=== PATIENT | male | born 1955 | race Caucasian/White ===

== ENCOUNTER 2016-11-18 08:26 | Emergency (ER) | payer OTHER ==
--- NOTE | 2016-11-18 08:37 | EDPHY ---
H & P Stated Complaint: exposure to chemicals at work in air/coughing Time Seen by Provider: 11/18/16 08:37 - Personal History Current Tetanus/Diphtheria Vaccine: Yes - Medical/Surgical History Hx Asthma: No Hx Chronic Respiratory Disease: No Hx Diabetes: No Hx Cardiac Disease: No Hx Renal Disease: No Hx Cirrhosis: No Hx Alcoholism: No Hx HIV/AIDS: No Hx Splenectomy or Spleen Trauma: No Other PMH: fibromyalgia - Social History Smoking Status: Never smoked Constitutional: Initial Vital Signs Temperature (C) 36.4 C 11/18/16 08:32 Heart Rate 75 11/18/16 08:32 Respiratory Rate 19 11/18/16 08:32 Blood Pressure 189/104 H 11/18/16 08:32 O2 Sat (%) 97 11/18/16 08:32 O2 Delivery Mode Room Air Allergies/Adverse Reactions: Penicillins Allergy (Verified 11/18/16 08:32) Home Medications: Medication Instructions Recorded predniSONE 40 mg PO DAILY #6 tab 11/18/16 Medical Decision Making ED Course/Re-evaluation: CHIEF COMPLAINT: Throat irritation and cough HISTORY OF PRESENT ILLNESS: The patient is a healthy 61 y/o male arriving from work at [employer] with a cough and throat irritation after inhaling an unknown chemical at work today. He states they have been doing asbestos abatement and cleaning on the floor above him and yesterday he developed itching eyes and headache. Upon returning to work this morning he developed a worsening cough and sensation of a swollen throat. He denies shortness of breath, wheezing, fever, or chest pain. No pertinent medical history. REVIEW OF SYSTEMS: A 10 point review of systems was performed and is negative with the exception of the elements mentioned in the history of present illness. PHYSICAL EXAM: HR, BP, O2 Sat, RR. Temp noted General Appearance: Alert, well hydrated, appropriate, and non-toxic appearing. Head: Atraumatic without scalp tenderness or obvious injury Eyes: Pupils equal, round, reactive to light and accommodation, EOMI, no trauma , no injection. Throat: There is erythema with mild edema, no exudate, no lesions, normal tonsils, mucus membranes moist. Neck: Supple, nontender, no lymphadenopathy. Respiratory: No retractions, no distress, no wheezes, and no accessory muscle use. Lungs are clear to auscultation bilaterally. Actively coughing Cardiovascular: Regular rate and rhythm, no murmurs, rubs, or gallops. Good capillary refill all extremities. Gastrointestinal: Abdomen is soft, nontender, non-distended, no masses, no rebound, no guarding, no peritoneal signs. Musculoskeletal: Normal active ROM of all extremities, atraumatic. Neurological: Alert, appropriate, and interactive. Nonfocal neuro exam. Skin: No rashes, good turgor, no nodules on palpation. Past medical history: Includes but not limited to fibromyalgia Past surgical history: Denies Family history: Non-contributory Social history: Never smoked, works at [employer]. DIFFERENTIAL DIAGNOSIS: The differential diagnosis included but was not limited to chemical exposure, angioedema, anaphylaxis, anaphylactoid reaction, urticarial reaction, and other infectious causes for respiratory symptoms MEDICAL DECISION MAKING: The patient is a normally healthy 61 y/o male who presents with acute onset persistent coughing and mild pharyngeal erythema and edema on exam. No stridor, wheezing, or signs of respiratory distress. Symptoms are consistent with allergic reaction secondary to inhalation exposure. Plan to treat as allergic reaction and give 40 mg PO Pepcid, 60 mg PO Prednisone, and nebulized lidocaine. 0915: Reassessment: Patient is feeling much better after neb treatment and medications. He continues to complain of mild throat irritation, but he is no longer coughing and feels much more comfortable. Lung sounds remain clear. Plan to discharge with script for prednisone and recommended follow up with PCP or workman's comp clinic as directed by his HR department. Return precautions given. - Data Points Medications Given: Discontinued Medications Famotidine (Pepcid) 40 mg PO EDNOW ONE Stop: 11/18/16 08:46 Last Admin: 11/18/16 08:54 Dose: 40 mg Lidocaine HCl (Lidocaine Hcl 1%) 20 ml NB EDNOW ONE Stop: 11/18/16 08:42 Last Admin: 11/18/16 08:54 Dose: 20 ml Prednisone (Prednisone) 60 mg PO EDNOW ONE Stop: 11/18/16 08:46 Last Admin: 11/18/16 08:55 Dose: 60 mg Departure - Departure Disposition: Home, Routine, Self-Care Clinical Impression: Allergic reaction Qualifiers: Encounter type: initial encounter Qualified Code(s): T78.40XA - Allergy, unspecified, initial encounter Condition: Good Instructions: General Allergic Reaction (ED) Additional Instructions: Follow-up with your primary doctor within 72 hours. Return to the Emergency Department for shortness of breath, difficulty swallowing, difficulty breathing , worsening of rash, fever or other worsening of condition. Use Prednisone as prescribed. Referrals: NONE *PRIMARY CARE P,. [Primary Care Provider] - As per Instructions Srini Fuentes MD [Medical Doctor] - As per Instructions Prescriptions: predniSONE 40 mg PO DAILY #6 tab Report Scribed for: Cullen Bah Report Scribed by: Leonel Richard Date of Report: 11/18/16 Time of Report: 09:54
[2016-11-18] MEDS ORDERED: LIDOCAINE 1% *Not for Epidural 20 ML MDV NB ONE (08:41)
[2016-11-18] MEDS ORDERED: methylPREDNISolone SOD SUCC 125 MG/2 ML VIAL ONE (08:41)
[2016-11-18] MEDS ORDERED: LIDO/EPI 1% **for epidural** 30 ML SDV ONE (08:41)
[2016-11-18] MEDS ORDERED: FAMOTIDINE 20 MG/2 ML SDV ONE (08:42)
[2016-11-18] MEDS ORDERED: FAMOTIDINE 20 MG TAB PO ONE (08:45)
[2016-11-18] MEDS ORDERED: predniSONE 20 MG TAB PO ONE (08:45)
[2016-11-18 09:39] VITALS: BP 160/88; PULSE 82; RESP 17; TEMP 97.8; O2SAT 97
== END 2016-11-18 09:55 | disposition home or self-care (01) ==
DX: T78.40XA Allergy, unspecified, initial encounter (principal)